=== PATIENT | male | born 1985 | race American Indian/Alaskan Native ===

== ENCOUNTER 2016-11-11 13:47 | Emergency (ER) | payer MEDICAID, OTHER ==
[2016-11-11 14:33] VITALS: BP 125/83
[2016-11-11 15:10] LABS: Eosinophils % (Auto) 1.1 % (0.0-4.3); Hematocrit 47.1 % (35.5-45.6); Hemoglobin 15.4 gm/dl (11.8-15.2); Mean Corpuscular HGB Conc 33 % (32-34); Mean Corpuscular Hemoglobin 30 pg (28-32); Mean Corpuscular Volume 91 fl (84-94); Platelet Count 243 K/mm3 (140-440); Red Blood Count 5.15 M/mm3 (3.65-5.03); Red Cell Distribution Width 13.9 % (13.2-15.2); White Blood Count 6.3 K/mm3 (4.5-11.0)
[2016-11-11 15:31] LABS: Anion Gap 17 mmol/L; BUN/Creatinine Ratio 12.22; Blood Urea Nitrogen 11 mg/dL (9-20); Calcium 9.7 mg/dL (8.4-10.2); Carbon Dioxide 26 mmol/L (22-30); Chloride 98.6 mmol/L (98-107); Glucose 88 mg/dL (75-100); Potassium 4.2 mmol/L (3.6-5.0); Sodium 137 mmol/L (137-145)
--- NOTE | 2016-11-15 00:57 | ED Elopement Review ---
ED Pt Elopement review - Results review Lab results: Laboratory Tests 11/11/16 11/11/16 11/11/16 14:54 14:54 17:40 WBC 6.3 RBC 5.15 H Hgb 15.4 H Hct 47.1 H MCV 91 MCH 30 MCHC 33 RDW 13.9 Plt Count 243 Lymph % (Auto) 36.3 H [place] % (Auto) 8.5 H Eos % (Auto) 1.1 Baso % (Auto) 1.0 Lymph # 2.3 [place] # 0.5 Eos # 0.1 Baso # 0.1 Seg Neutrophils % 53.1 Seg Neutrophils # 3.3 Sodium 137 Potassium 4.2 Chloride 98.6 Carbon Dioxide 26 Anion Gap 17 BUN 11 Creatinine 0.9 Estimated GFR > 60 BUN/Creatinine Ratio 12.22 Glucose 88 Calcium 9.7 Troponin T < 0.010 < 0.010 - Call Back decision Pt Call Back Decision: No action required
== END 2016-11-11 18:18 | disposition left against medical advice (07) ==
LOC: ED 13:47
DX: R06.02 Shortness of breath (principal); R42 Dizziness and giddiness; R11.0 Nausea; Z53.21 Procedure and treatment not carried out due to patient leaving prior to being seen by health care provider
CPT/HCPCS: 36415; 80048; 84484; 85025; 93005; 93010